=== PATIENT | female | born 1965 | race Hispanic/Latino ===

== ENCOUNTER 2017-07-19 13:40 | Emergency (ER) | payer MEDICAID ==
[2017-07-19 13:43] VITALS: BMI 40.5
[2017-07-19 13:54] VITALS: TEMP 97.5; O2SAT 97
[2017-07-19] MEDS ORDERED: Sodium Chloride 0.9% 1,000 ML IV STA (14:39)
[2017-07-19] MEDS ORDERED: DiphenhydrAMINE 50 mg/ml Inj IVP STA (14:41)
--- NOTE | 2017-07-19 14:44 | ED PDOC ---
Arrival/HPI - General Chief Complaint: Headache Time Seen by Provider: 07/19/17 14:38 Historian: Patient - History of Present Illness Narrative History of Present Illness (Text): 07/19/17 14:40 A 51 year old female presents to the emergency department complaining of a sharp right sided headache for 1 week. Patient reports taking Tylenol extra strength and Motrin, with no relief. Patient denies any recent trauma, fever, chills, nausea, vomiting, abdominal pain, chest pain, shortness of breath, dizziness, vision changes, photophobia or any other complaints. Patient denies any recent travel. Time/Duration: 1 week Symptom Course: Unchanged Quality: Other (Sharp) Context: Home Past Medical History - Provider Review Nursing Documentation Reviewed: Yes - Reproductive Menopause: Yes - Cardiac Hx Hypertension: Yes - Psychiatric Hx Depression: No Hx Emotional Abuse: No Hx Physical Abuse: No Hx Substance Use: No - Surgical History Hx Section: Yes - Suicidal Assessment Feels Threatened In Home Enviroment: No Family/Social History - Physician Review Nursing Documentation Reviewed: Yes Family/Social History: No Known Family HX Smoking Status: Never Smoked Hx Alcohol Use: No Hx Substance Use: No Hx Substance Use Treatment: No Allergies/Home Meds Allergies/Adverse Reactions: Allergies Penicillins Adverse Reaction (Verified 07/19/17 13:54) RASH Home Medications: Home Meds Medication Instructions Recorded Confirmed hydroCHLOROthiazide [Microzide] 12.5 mg PO DAILY 07/19/17 07/19/17 Review of Systems - Physician Review All systems were reviewed & negative as marked: Yes - Review of Systems Constitutional: absent: Fevers, Night Sweats Eyes: absent: Vision Changes, Photophobia Respiratory: absent: SOB Cardiovascular: absent: Chest Pain Gastrointestinal: absent: Abdominal Pain, Nausea, Vomiting Neurological: Headache. absent: Dizziness Physical Exam - Physical Exam Narrative Physical Exam (Text): Constitutional: No acute distress. Head: Atraumatic. Right frontal sinus tenderness. Bilateral temporal pulses intact. Eyes: PERRL. No cloudy cornea, eye redness or tearing. ENT: Moist mucous membranes. Neck: Supple. No stiffness. Cardiovascular: Regular rate. Chest: No tenderness. Respiratory: Clear to auscultation bilaterally. GI: Soft. Nontender. Nondistended. Back: No CVA tenderness. Musculoskeletal: No tenderness or swelling of extremities. Skin: No rash. Neurologic: Alert, no focal deficit. Vital Signs Reviewed: Yes Vital Signs Temp Pulse Resp BP Pulse Ox 07/19/17 13:49 97.5 F L 88 15 144/86 97 Temperature: Afebrile Blood Pressure: Normal Pulse: Regular Respiratory Rate: Normal Appearance: Positive for: Well-Appearing, Non-Toxic, Comfortable Pain Distress: None Mental Status: Positive for: Alert and Oriented X 3 Medical Decision Making ED Course and Treatment: Report Date : 07/19/2017 17:01:45 PROCEDURE: CT HEAD WITHOUT CONTRAST. Dictator : Michael Boykin MD IMPRESSION: No acute intracranial abnormalities. No significant findings to account for the clinical presentation. No significant interval change compared to the prior examination(s). F/u Dr. Weiss, instructed to return to ED for worsening pain, fever, vomiting, vision change. [employer] registry checked, 1 previous almost 1 year ago, advised to take only as needed and risks. - RAD Interpretation Radiology Orders: 07/19/17 14:39 HEAD W/O CONTRAST [CT] Stat - Medication Orders Current Medication Orders: Discontinued Medications Acetaminophen (Tylenol 325mg Tab) 975 mg PO STAT STA Stop: 07/19/17 14:42 Last Admin: 07/19/17 14:58 Dose: 975 mg MAR Pain/Vitals Document 07/19/17 14:58 EQ (Rec: 07/19/17 14:58 EQ [id number]) Pain Reassessment Is This A Pain ReAssessment? No Sleep Is patient sleeping during reassessment? No Presence of Pain Presence of Pain Yes Diphenhydramine HCl (Benadryl) 50 mg IVP STAT STA Stop: 07/19/17 14:42 Last Admin: 07/19/17 14:59 Dose: 50 mg IVP Administration Document 07/19/17 14:59 EQ (Rec: 07/19/17 14:59 EQ [id number]) Charges for Administration # of IVP Administrations 1 Sodium Chloride (Sodium Chloride 0.9%) 1,000 mls @ 999 mls/hr IV .Q1H1M STA Stop: 07/19/17 15:39 Last Admin: 07/19/17 14:59 Dose: 999 mls/hr eMAR Start Stop Document 07/19/17 14:59 EQ (Rec: 07/19/17 14:59 EQ [id number]) Intravenous Solution Start Date 07/19/17 Start Time 14:59 Ketorolac Tromethamine (Toradol) 30 mg IVP STAT STA Stop: 07/19/17 14:40 Last Admin: 07/19/17 14:59 Dose: 30 mg MAR Pain Assessment Document 07/19/17 14:59 EQ (Rec: 07/19/17 14:59 EQ [id number]) Pain Reassessment Is this a pain reassessment? No Sleep Is patient sleeping during reassessment? No Presence of Pain Presence of Pain Yes IVP Administration Document 07/19/17 14:59 EQ (Rec: 07/19/17 14:59 EQ [id number]) Charges for Administration # of IVP Administrations 1 Metoclopramide HCl (Reglan) 10 mg IVP STAT STA Stop: 07/19/17 14:42 Last Admin: 07/19/17 14:59 Dose: 10 mg IVP Administration Document 07/19/17 14:59 EQ (Rec: 07/19/17 14:59 EQ [id number]) Charges for Administration # of IVP Administrations 1 - Scribe Statement The provider has reviewed the documentation as recorded by the Andrei Thomas Provider Scribe Attestation: All medical record entries made by the Scribe were at my direction and personally dictated by me. I have reviewed the chart and agree that the record accurately reflects my personal performance of the history, physical exam, medical decision making, and the department course for this patient. I have also personally directed, reviewed, and agree with the discharge instructions and disposition. Disposition/Present on Arrival - Present on Arrival Any Indicators Present on Arrival: No History of DVT/PE: No History of Uncontrolled Diabetes: No Urinary Catheter: No History of Decub. Ulcer: No History Surgical Site Infection Following: None - Disposition Have Diagnosis and Disposition been Completed?: Yes Diagnosis: Headache Disposition: HOME/ ROUTINE Disposition Time: 17:29 Patient Plan: Discharge Condition: STABLE Discharge Instructions (ExitCare): Headache, Adult Prescriptions: Doxycycline Monohydrate [Mondoxyne Nl] 100 mg PO BID #14 capsule Guaifenesin [Guaifenesin ER] 1,200 mg PO Q12H #18 tab.er.12h oxyCODONE/Acetaminophen [Percocet 5/325 mg Tab] 1 tab PO Q6 #10 tab Referrals: Krysta Weiss MD [Primary Care Provider] - Follow up with primary Forms: [employer] (Bulgarian)
--- NOTE | 2017-07-19 17:03 | CT ---
PROCEDURE: CT HEAD WITHOUT CONTRAST. HISTORY: headache COMPARISON: 09/03/2013 TECHNIQUE: Axial computed tomography images were obtained through the head/brain without intravenous contrast. Radiation dose: Total exam DLP = mGy-cm. This CT exam was performed using one or more of the following dose reduction techniques: Automated exposure control, adjustment of the mA and/or kV according to patient size, and/or use of iterative reconstruction technique. FINDINGS: HEMORRHAGE: No intracranial hemorrhage. BRAIN: No mass effect or edema. No atrophy or chronic microvascular ischemic changes. VENTRICLES: Unremarkable. No hydrocephalus. CALVARIUM: Unremarkable. PARANASAL SINUSES: Unremarkable as visualized. No significant inflammatory changes. MASTOID AIR CELLS: Unremarkable as visualized. No inflammatory changes. OTHER FINDINGS: None. IMPRESSION: No acute intracranial abnormalities. No significant findings to account for the clinical presentation. No significant interval change compared to the prior examination(s).
[2017-07-19 17:38] VITALS: BP 124/76; RESP 18
[2017-07-19 17:59] VITALS: PULSE 80
== END 2017-07-19 18:01 | disposition home or self-care (01) ==
LOC: ED 13:40
DX: R51 Headache (principal); I10 Essential (primary) hypertension
CPT/HCPCS: 70450; 96374; 96375; 99285; J1200; J1885; J2765; J7040